=== PATIENT | female | born 1995 | race Caucasian/White ===

== ENCOUNTER 2017-04-28 13:37 | Emergency (ER) | payer MEDICAID ==
[2017-04-28 13:43] VITALS: BP 111/74
--- NOTE | 2017-04-28 14:00 | ED Physician Documentation ---
History of Present Illness - Stated complaint Stated Complaint: R SHOULDER PX - Chief complaint Chief Complaint: Ext Problem - History obtained from History obtained from: Patient - History of Present Illness Timing: How many days ago (2) Pain level max: 8 Pain level now: 8 Improved by: rest Worsened by: movement - Additonal information Additional information: Patient is a 21-year-old female who presents to the emergency department with a right shoulder injury. 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 Has not taken anything for the pain as she cannot swallow pills. Review of Systems Constitutional: denies: Fever, Chills Ears: denies: Ear pain Nose: denies: Rhinorrhea / runny nose, Congestion Cardiac: denies: Chest pain / pressure Respiratory: denies: Cough GI: denies: Nausea, Vomiting Skin: denies: Rash Musculoskeletal: denies: Neck pain, Back pain Neurologic: denies: Headache PD PAST MEDICAL HISTORY - Past Medical History Past Medical History: No - Past Surgical History Past Surgical History: No - Present Medications Home Medications: Ambulatory Orders Medication Instructions Recorded Confirmed Diclofenac Sodium 1 applic TP Q8H #1 gel..gram. 04/28/17 - Social History Does the pt smoke?: No Smoking Status: Never smoker PD ED PE NORMAL - Vitals Vital signs reviewed: Yes - General General: Alert and oriented X 3, No acute distress - HEENT HEENT: Moist mucous membranes - Neck Neck: Supple, no meningeal sign - Cardiac Cardiac: RRR, Strong equal pulses - Respiratory Respiratory: No respiratory distress, Clear bilaterally - Derm Derm: Warm and dry - Extremities Extremities: Other (R shoulder - TTP along the posterior glenohumeral joint. NVI including axillary nerve. pain with internal/external rotation. ) - Neuro Neuro: Alert and oriented X 3 - Psych Psych: Normal mood, Normal affect Results - Vitals Vitals: Vital Signs - 24 hr 04/28/17 04/28/17 13:40 13:42 Temperature 36.3 C L Heart Rate 80 Respiratory 16 Rate Blood Pressure 111/74 O2 Saturation 100 Oxygen O2 Source Room air PD MEDICAL DECISION MAKING - ED course Complexity details: considered differential, d/w patient ED course: Patient is a 21-year-old female who presents to the emergency department with what appears to be a right rotator cuff injury, likely a chronic tear that flares once in a while. She states she cannot swallow pills, therefore will trial on diclofenac gel. We will have her follow-up with orthopedics for further evaluation. Patient counseled regarding signs and symptoms for which I believe and urgent re-evaluation would be necessary. Patient with good understanding of and agreement to plan and is comfortable going home at this time This document was made in part using voice recognition software. While efforts are made to proofread this document, sound alike and grammatical errors may occur. Departure - Departure Disposition: 01 Home, Self Care Clinical Impression: Rotator cuff injury Qualifiers: Encounter type: initial encounter Laterality: right Qualified Code(s): S46.001A - Unspecified injury of muscle(s) and tendon(s) of the rotator cuff of right shoulder, initial encounter Condition: Good Instructions: ED Torn Rotator Cuff, ED Tendinitis Rotator Cuff Follow-Up: [facility] [Provider Group] - Within 1 week Prescriptions: Diclofenac Sodium 1 applic TP Q8H #1 gel..gram. Comments: Return if you worsen. This should improve with the diclofenac. Follow up with orthopedics for further care. Forms: Activity restrictions
== END 2017-04-28 14:14 | disposition home or self-care (01) ==
LOC: ED 13:37
DX: S46.001A Unspecified injury of muscle(s) and tendon(s) of the rotator cuff of right shoulder, initial encounter (principal); X58.XXXA Exposure to other specified factors, initial encounter
CPT/HCPCS: 99283

== ENCOUNTER 2018-03-04 08:00 | Outpatient (CLI) | payer MEDICAID | END 2018-03-04 08:01 | disposition home or self-care (01) | LOC: LAB.R 08:00 | PROVIDERS: ATTEND Registered Nurse | DX: Z11.3 Encounter for screening for infections with a predominantly sexual mode of transmission (principal) | CPT/HCPCS: 87491; 87591 ==

== ENCOUNTER 2018-03-18 04:57 | Emergency (ER) | payer MEDICAID ==
--- NOTE | 2018-03-18 05:06 | ED Physician Documentation ---
PD HPI HEENT - Stated complaint Stated Complaint: SOA - Chief complaint Chief Complaint: Resp - History obtained from History obtained from: Patient - History of Present Illness Timing - onset: How many days ago (3) Timing - duration: Days Timing - details: Gradual onset, Waxing and waning Pain level now: 2 Location: Sinuses, Throat Improves: Nothing Worsens: Swalllowing Associated symptoms: Congestion, Cough. 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 Review of Systems Constitutional: denies: Fever, Chills, Sweats Ears: denies: Ear pain Nose: reports: Congestion, Sinus pressure / pain Throat: reports: Sore throat Respiratory: reports: Dyspnea, Cough PD PAST MEDICAL HISTORY - Past Medical History Past Medical History: No - Past Surgical History Past Surgical History: No - Present Medications Home Medications: Ambulatory Orders Medication Instructions Recorded Confirmed Fluticasone [Flonase] 2 sprays JANICE DAILY #1 bottle 03/18/18 - Allergies Allergies/Adverse Reactions: Allergies Allergy/AdvReac Type Severity Reaction Status Date / Time No Known Drug Allergies Allergy Verified 03/18/18 05:03 - Social History Does the pt smoke?: No Smoking Status: Never smoker PD ED PE NORMAL - Vitals Vital signs reviewed: Yes - General General: Alert and oriented X 3, No acute distress, Well developed/nourished - HEENT HEENT: Moist mucous membranes, Pharynx benign - Neck Neck: Supple, no meningeal sign - Cardiac Cardiac: RRR, No murmur - Respiratory Respiratory: No respiratory distress, Other (right basilar course breath sounds. good air movement bilaterally without wheezing) Results - Vitals Vitals: Vital Signs - 24 hr 03/18/18 05:01 Temperature 36.8 C Heart Rate 104 H Respiratory 18 Rate Blood Pressure 127/74 O2 Saturation 97 Oxygen O2 Source Room air - Rads (name of study) chest xray Radiology: Prelim report reviewed, See rad report PD MEDICAL DECISION MAKING - ED course Complexity details: reviewed results, re-evaluated patient, considered differential, d/w patient - Sepsis Event Vital Signs: Vital Signs - 24 hr 03/18/18 05:01 Temperature 36.8 C Heart Rate 104 H Respiratory 18 Rate Blood Pressure 127/74 O2 Saturation 97 Oxygen O2 Source Room air Departure - Departure Disposition: 01 Home, Self Care Clinical Impression: Bronchitis Sinusitis Qualifiers: Sinusitis location: unspecified location Chronicity: acute Recurrence: non- recurrent Qualified Code(s): J01.90 - Acute sinusitis, unspecified Pharyngitis Qualifiers: Pharyngitis/tonsillitis etiology: unspecified etiology Qualified Code(s): J02.9 - Acute pharyngitis, unspecified Condition: Good Instructions: ED Upper Resp Infec No Abx Tx, ED Pharyngitis Viral Report Pending, ED Sinusitis No Abx Prescriptions: Fluticasone [Flonase] 2 sprays JANICE DAILY #1 bottle Comments: You can try the following for your symptoms: I strongly recommend ibuprofen 400mg by mouth every four hours as needed for symptoms. You can take 600mg every 6 hours if the 400mg dose does not provide any change in symptoms. guaifenesin for nasal or chest congestion. Mucinex is a brand name for this medication, but the generic will work the same. It is often a component of cough/cold products, so if you are already taking something for your symptoms, check the label. Nasal decongestant such as oxymetazoline, phelyleprhine, or pseudoephedrine. Some of these are in spray form, others are in pill form. Some cough/cold/sinus products have this as an ingredient, so if you are already taking something for your symptoms, check the label. Antihistamines, such as benadryl or claritin. Some people get relief with this medication, but I do not recommend them, as they dry secretions and make it more difficult for the sinuses to clear. Forms: Activity restrictions Discharge Date/Time: 03/18/18 06:27
--- NOTE | 2018-03-18 05:53 | XRAY Report ---
Reason: cough, dyspnea Procedure Date: 03/18/2018 Accession Number: [id number] / [id number] Procedure: XR - Chest 2 View X-Ray CPT Code: 38672 FULL RESULT: EXAM: CHEST RADIOGRAPHY EXAM DATE: 03/18/2018 05:38 AM. CLINICAL HISTORY: Cough, dyspnea. COMPARISON: SHOULDER 3 VIEW RT 05/01/2017 10:40 AM. TECHNIQUE: 2 views. FINDINGS: Lungs/Pleura: No focal opacities evident. No pleural effusion. No pneumothorax. Normal volumes. Mediastinum: Heart and mediastinal contours are unremarkable. Other: None. IMPRESSION: Normal 2-view chest radiography. RADIA
[2018-03-18 06:25] VITALS: BP 105/63
== END 2018-03-18 06:27 | disposition home or self-care (01) ==
LOC: ED 04:57
DX: J40 Bronchitis, not specified as acute or chronic (principal)
CPT/HCPCS: 71046; 87070; 87430; 99283

== ENCOUNTER 2019-01-29 10:18 | Outpatient (CLI) | payer MEDICAID ==
[2019-01-29 20:54] LABS: CANDIDA GROUP DNA POSITIVE (NEGATIVE); CANDIDA KRUSEI DNA NEGATIVE (NEGATIVE); TRICHOMONAS VAGINALIS DNA NEGATIVE (NEGATIVE)
== END 2019-01-29 23:59 | disposition home or self-care (01) ==
LOC: LAB.R 10:18
PROVIDERS: ATTEND Family Medicine
DX: N76.0 Acute vaginitis (principal)
CPT/HCPCS: 87661; 87801

== ENCOUNTER 2019-01-30 08:00 | Outpatient (CLI) | payer MEDICAID ==
[2019-01-31 19:39] LABS: H. PYLORIS ANTIGEN STL NEGATIVE (Negative)
== END 2019-01-30 23:59 | disposition home or self-care (01) ==
LOC: LAB.R 08:00
PROVIDERS: ATTEND Family Medicine
DX: R10.9 Unspecified abdominal pain (principal)
CPT/HCPCS: 87338

== ENCOUNTER 2019-01-30 12:01 | Outpatient (CLI) | payer MEDICAID ==
[2019-01-30 16:59] LABS: BASOPHILS % (AUTO) 0.6 %; EOSINOPHILS # (AUTO) 0.2 10^3/uL (0.0-0.7); EOSINOPHILS % (AUTO) 2.6 %; HGB - HEMOGLOBIN 14.8 g/dL (12.0-16.0); LYMPHOCYTES # (AUTO) 1.9 10^3/uL (1.5-3.5); LYMPHOCYTES % (AUTO) 30.2 %; MEAN CORPUSCULAR HEMOGLOBIN 30.8 pg (27.0-31.0); MEAN CORPUSCULAR HGB CONC 32.7 g/dL (32.0-36.0); MEAN CORPUSCULAR VOLUME 94.4 fL (81.0-99.0); MEAN PLATELET VOLUME 11.9 fL (7.9-10.8); MONOCYTES # (AUTO) 0.4 10^3/uL (0.0-1.0); MONOCYTES % (AUTO) 5.6 %; NEUTROPHILS # (AUTO) 3.8 10^3/uL (1.5-6.6); NEUTROPHILS % (AUTO) 60.8 %; PLT - PLATELET COUNT 180 10^3/uL (130-450); RED CELL DISTRIBUTION WIDTH 12.8 % (12.0-15.0); WHITE BLOOD COUNT 6.3 x10^3/uL (4.8-10.8)
[2019-01-30 17:13] LABS: ALBUMIN 4.2 g/dL (3.2-5.5); ALBUMIN/GLOBULIN RATIO 1.3 (1.0-2.2); CALCIUM 9.3 mg/dL (8.5-10.3); CREATININE 0.6 mg/dL (0.4-1.0); TOTAL PROTEIN 7.4 g/dL (6.7-8.2)
== END 2019-01-30 12:02 | disposition home or self-care (01) ==
LOC: LAB.S 12:01
PROVIDERS: ATTEND Family Medicine
DX: R53.83 Other fatigue (principal); R10.9 Unspecified abdominal pain
CPT/HCPCS: 36415; 80053; 84443; 85025; 87338

== ENCOUNTER 2019-04-29 07:00 | Outpatient (CLI) | payer MEDICAID | END 2019-04-29 23:59 | disposition home or self-care (01) | LOC: LAB.R 07:00 | PROVIDERS: ATTEND Registered Nurse | DX: J02.9 Acute pharyngitis, unspecified (principal) | CPT/HCPCS: 87070 ==

== ENCOUNTER 2020-03-23 12:03 | Emergency (ER) | payer OTHER, MEDICAID ==
--- NOTE | 2020-03-23 13:56 | ED Physician Documentation ---
History of Present Illness - Stated complaint Stated Complaint: LT SHOULDER PX - Chief complaint Chief Complaint: Ext Problem - Additonal information Additional information: 24-year-old female presents to the emergency department for evaluation of what she calls left shoulder pain. She reports that it started hurting anytime she moved her arm yesterday. She denies any falls or trauma. No fevers or swelling. Pain is in the anterior chest just below the clavicle. 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 No history of previous injury Patient denies chest pain or shortness of breath. No dyspnea on exertion. No unilateral leg swelling. No history of blood clots or cancer. Patient does get Depo-Provera every 3 months. She is a non-smoker. No cough congestion fevers or chills. Review of Systems Constitutional: reports: Reviewed and negative Eyes: reports: Reviewed and negative Nose: reports: Reviewed and negative Throat: reports: Reviewed and negative Cardiac: reports: Reviewed and negative Respiratory: reports: Reviewed and negative GI: reports: Reviewed and negative : reports: Reviewed and negative Skin: reports: Reviewed and negative Musculoskeletal: reports: Joint pain (left shoulder) Neurologic: reports: Reviewed and negative Psychiatric: reports: Reviewed and negative PD PAST MEDICAL HISTORY - Past Surgical History Past Surgical History: No - Present Medications Home Medications: Ambulatory Orders Medication Instructions Recorded Confirmed Fluticasone [Flonase] 2 sprays JANICE DAILY #1 bottle 03/18/18 Ibuprofen [Motrin] 600 mg PO Q6H PRN #30 tab 03/23/20 - Allergies Allergies/Adverse Reactions: Allergies Allergy/AdvReac Type Severity Reaction Status Date / Time No Known Drug Allergies Allergy Verified 03/23/20 12:07 - Social History Does the pt smoke?: No Smoking Status: Never smoker Does the pt drink ETOH?: No Does the pt have substance abuse?: No - Immunizations Immunizations are current?: Yes - POLST Patient has POLST: No PD ED PE NORMAL - General General: Alert and oriented X 3 - HEENT HEENT: PERRL - Neck Neck: Supple, no meningeal sign - Cardiac Cardiac: RRR, No murmur - Respiratory Respiratory: Clear bilaterally - Abdomen Abdomen: Normal bowel sounds, Soft, Non tender, Non distended - Back Back: No CVA TTP, No spinal TTP - Extremities Extremities: No deformity. No: No tenderness to palpate (Tenderness with deep palpation left superior anterior pectoralis muscle. No swelling or erythema. Full range of motion of shoulder in all planes against resistance. Negative impingement testing.) Results - Vitals Vitals: Vital Signs - 24 hr 03/23/20 12:07 Temperature 36.5 C Heart Rate 88 Respiratory 16 Rate Blood Pressure 130/90 H O2 Saturation 98 Oxygen O2 Source Room air - Rads (name of study) left shoulder Radiology: Final report received (No acute cardiopulmonary process) cxr Radiology: Final report received (no acute process) PD MEDICAL DECISION MAKING - ED course Complexity details: reviewed results, considered differential, d/w patient ED course: 24-year-old female presents the emergency department with acute left anterior shoulder pain. She denies falls or trauma. 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 Her exam is not consistent with rotator cuff pathology or internal derangement. She does have pain in the pectoralis muscle with deep palpation therefore I do suspect she had a pectoral strain. She is PERC criteria negative and Wells criteria negative therefore my suspicion for PE is exceedingly low. I will recommend she continue with ice and NSAID versus Tylenol use at home. Schedule close follow-up with primary care provider Departure - Departure Disposition: Home, Self Care Clinical Impression: Left shoulder pain Qualifiers: Chronicity: acute Qualified Code(s): M25.512 - Pain in left shoulder Strain of left pectoralis muscle Qualifiers: Encounter type: initial encounter Qualified Code(s): S29.011A - Strain of muscle and tendon of front wall of thorax, initial encounter Condition: Stable Record reviewed to determine appropriate education?: Yes Follow-Up: Bora Martin MD [Primary Care Provider] - Prescriptions: Ibuprofen [Motrin] 600 mg PO Q6H PRN #30 tab PRN Reason: Pain Comments: The x-rays of your chest and shoulder are normal. I suspect that you have strained your pectoralis muscle. I would like you to place ice over the muscle for 10 minutes 3 times a day and take the ibuprofen as prescribed. If your symptoms are not better in 7 to 10 days, you develop fevers or have difficulty breathing please return for a second look.
--- NOTE | 2020-03-23 14:39 | XRAY Report ---
PROCEDURE: Shoulder 3 View LT INDICATIONS: pain TECHNIQUE: 3 views of the shoulder were acquired. COMPARISON: None. FINDINGS: Bones: No fractures or dislocations. No suspicious bony lesions. Visualized ribs appear intact. Soft tissues: No suspicious soft tissue calcifications. IMPRESSION: Left shoulder without acute radiographic abnormalities or significant degenerative cui es. Reviewed by: Thomas Perez MD on 03/23/2020 2:38 PM PDT Approved by: Thomas Perez MD on 03/23/2020 2:38 PM PDT Station ID: [id number]
--- NOTE | 2020-03-23 14:40 | XRAY Report ---
PROCEDURE: Chest 1 View X-Ray INDICATIONS: chest pain TECHNIQUE: One view of the chest was acquired. COMPARISON: 03/18/2018. FINDINGS: Surgical changes and devices: None. Lungs and pleura: No pleural effusions or pneumothorax. Lungs are clear. Mediastinum: Mediastinal contours appear normal. Heart size is normal. Bones and chest wall: No suspicious bony lesions. Overlying soft tissues appear unremarkable. IMPRESSION: Chest without acute cardiopulmonary abnormalities. No focal airspace disease. Reviewed by: Thomas Perez MD on 03/23/2020 2:39 PM PDT Approved by: Thomas Perez MD on 03/23/2020 2:39 PM PDT Station ID: [id number]
[2020-03-23 14:56] VITALS: BP 100/59
== END 2020-03-23 15:01 | disposition home or self-care (01) ==
LOC: ED 12:03
DX: S29.011A Strain of muscle and tendon of front wall of thorax, initial encounter (principal); X58.XXXA Exposure to other specified factors, initial encounter
CPT/HCPCS: 71045; 99282; 99283

== ENCOUNTER 2020-06-30 18:17 | Emergency (ER) | payer OTHER, MEDICAID ==
[2020-06-30 18:54] LABS: BASOPHILS % (AUTO) 0.5 %; EOSINOPHILS # (AUTO) 0.2 10^3/uL (0.0-0.7); EOSINOPHILS % (AUTO) 2.8 %; HGB - HEMOGLOBIN 15.2 g/dL (12.0-16.0); LYMPHOCYTES # (AUTO) 2.4 10^3/uL (1.5-3.5); MEAN CORPUSCULAR HEMOGLOBIN 29.9 pg (27.0-31.0); MEAN CORPUSCULAR HGB CONC 32.8 g/dL (32.0-36.0); MEAN CORPUSCULAR VOLUME 91.1 fL (81.0-99.0); MEAN PLATELET VOLUME 10.9 fL (7.9-10.8); MONOCYTES # (AUTO) 0.5 10^3/uL (0.0-1.0); MONOCYTES % (AUTO) 6.1 %; NEUTROPHILS # (AUTO) 4.4 10^3/uL (1.5-6.6); NEUTROPHILS % (AUTO) 58.5 %; PLT - PLATELET COUNT 229 10^3/uL (130-450); RED BLOOD COUNT 5.08 10^6/uL (4.20-5.40); RED CELL DISTRIBUTION WIDTH 12.6 % (12.0-15.0); WHITE BLOOD COUNT 7.5 x10^3/uL (4.8-10.8)
[2020-06-30 19:08] LABS: ALBUMIN 4.3 g/dL (3.2-5.5); ALBUMIN/GLOBULIN RATIO 1.5 (1.0-2.2); BILIRUBIN,TOTAL 0.7 mg/dL (0.2-1.0); CALCIUM 9.4 mg/dL (8.5-10.3); CREATININE 0.8 mg/dL (0.4-1.0); TOTAL PROTEIN 7.2 g/dL (6.7-8.2)
--- NOTE | 2020-06-30 19:29 | XRAY Report ---
PROCEDURE: Chest 1 View X-Ray INDICATIONS: Chest Pain TECHNIQUE: One view of the chest was acquired. COMPARISON: 03/23/2020 FINDINGS: Surgical changes and devices: None. Lungs and pleura: No pleural effusions or pneumothorax. Lungs are clear. Mediastinum: Mediastinal contours appear normal. Heart size is normal. Bones and chest wall: No suspicious bony lesions. Overlying soft tissues appear unremarkable. IMPRESSION: Chest without acute cardiopulmonary abnormalities. No findings to explain patient's chest pain. Reviewed by: Thomas Perez MD on 06/30/2020 7:28 PM PST Approved by: Thomas Perez MD on 06/30/2020 7:28 PM PST Station ID: [id number]
[2020-06-30 23:27] VITALS: BP 103/65
--- NOTE | 2020-06-30 23:35 | ED Physician Documentation ---
PD HPI CHEST PAIN - Stated complaint Stated Complaint: CHEST PX/HEADACHE - Chief complaint Chief Complaint: Cardiac - History obtained from History obtained from: Patient - History of Present Illness Timing - onset: How many days ago (3) Timing - duration: Days Timing - details: Gradual onset, Waxing and waning Quality: Pain Location: Other (across anterior chest) Radiation: Other (no radiation) Improved by: Nothing Worsened by: Other (no exacerbating factors) Associated symptoms: No: Shortness of air, Diaphoresis, General Weakness, Palpitations, Cough Similar symptoms before: Has not had sx before Recently seen: Not recently seen - Additional information Additional information: c/o 3 days of aching chest pain across anterior chest and loss of taste. She denies fever, shortness of breath, loss of smell. 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 denies: Palpitations, Pedal edema Respiratory: reports: Reviewed and negative GI: reports: Reviewed and negative Musculoskeletal: denies: Extremity swelling PD PAST MEDICAL HISTORY - Past Medical History Past Medical History: No - Past Surgical History Past Surgical History: No - Present Medications Home Medications: Ambulatory Orders Medication Instructions Recorded Confirmed Ibuprofen [Motrin] 600 mg PO Q6H PRN #30 tab 03/23/20 06/30/20 - Allergies Allergies/Adverse Reactions: Allergies Allergy/AdvReac Type Severity Reaction Status Date / Time No Known Drug Allergies Allergy Verified 06/30/20 18:20 - Social History Does the pt smoke?: No Smoking Status: Never smoker Does the pt drink ETOH?: No Does the pt have substance abuse?: No - Immunizations Immunizations are current?: Yes - POLST Patient has POLST: No PD ED PE NORMAL - Vitals Vital signs reviewed: Yes - General General: Alert and oriented X 3, No acute distress, Well developed/nourished - Cardiac Cardiac: RRR, No murmur - Respiratory Respiratory: No respiratory distress, Clear bilaterally Results - Vitals Vitals: Oxygen O2 Source Room air - EKG (time done) No standard instances Rate: Rate (enter#) (83) Rhythm: NSR [place]: Normal Intervals: Normal AR QRS: Normal Ischemia: Normal ST segments - Labs Labs: Laboratory Tests 06/30/20 06/30/2006/30/21 18:49 18:49 18:49 WBC 7.5 RBC 5.08 Hgb 15.2 Hct 46.3 MCV 91.1 MCH 29.9 MCHC 32.8 RDW 12.6 Plt Count 229 MPV 10.9 H Neut # (Auto) 4.4 Lymph # (Auto) 2.4 Leake # (Auto) 0.5 Eos # (Auto) 0.2 Baso # (Auto) 0.0 Absolute Nucleated RBC 0.00 Nucleated RBC % 0.0 Sodium 143 Potassium 3.7 Chloride 108 Carbon Dioxide 24 Anion Gap 11.0 BUN 10 Creatinine 0.8 Estimated GFR (MDRD) 89 Glucose 114 H Calcium 9.4 Total Bilirubin 0.7 AST 19 ALT 16 Alkaline Phosphatase 61 Troponin I High Sens 5.3 Total Protein 7.2 Albumin 4.3 Globulin 2.9 Albumin/Globulin Ratio 1.5 Lipase 31 Nasal Adenovirus (PCR) Nasal B. parapertussis DNA (PCR) Nasal Coronavir 229E PCR Nasal Coronavir HKU1 PCR Nasal Coronavir NL63 PCR Nasal Coronavir OC43 PCR Nasal Enterovir/Rhinovir PCR Nasal Influenza B PCR Nasal Influenza A PCR Nasal Parainfluen 1 PCR Nasal Parainfluen 2 PCR Nasal Parainfluen 3 PCR Nasal Parainfluen 4 PCR Nasal RSV (PCR) Nasal B.pertussis DNA PCR Nasal C.pneumoniae (PCR) Ryan Human Metapneumo PCR Nasal M.pneumoniae (PCR) Nasal SARS-CoV-2 (PCR) 07/01/20 00:00 WBC RBC Hgb Hct MCV MCH MCHC RDW Plt Count MPV Neut # (Auto) Lymph # (Auto) Leake # (Auto) Eos # (Auto) Baso # (Auto) Absolute Nucleated RBC Nucleated RBC % Sodium Potassium Chloride Carbon Dioxide Anion Gap BUN Creatinine Estimated GFR (MDRD) Glucose Calcium Total Bilirubin AST ALT Alkaline Phosphatase Troponin I High Sens Total Protein Albumin Globulin Albumin/Globulin Ratio Lipase Nasal Adenovirus (PCR) NOT DETECTED Nasal B. parapertussis DNA (PCR) NOT DETECTED Nasal Coronavir 229E PCR NOT DETECTED Nasal Coronavir HKU1 PCR NOT DETECTED Nasal Coronavir NL63 PCR NOT DETECTED Nasal Coronavir OC43 PCR NOT DETECTED Nasal Enterovir/Rhinovir PCR NOT DETECTED Nasal Influenza B PCR NOT DETECTED Nasal Influenza A PCR NOT DETECTED Nasal Parainfluen 1 PCR NOT DETECTED Nasal Parainfluen 2 PCR NOT DETECTED Nasal Parainfluen 3 PCR NOT DETECTED Nasal Parainfluen 4 PCR NOT DETECTED Nasal RSV (PCR) NOT DETECTED Nasal B.pertussis DNA PCR NOT DETECTED Nasal C.pneumoniae (PCR) NOT DETECTED Ryan Human Metapneumo PCR NOT DETECTED Nasal M.pneumoniae (PCR) NOT DETECTED Nasal SARS-CoV-2 (PCR) NOT DETECTED - Rads (name of study) chest xray Radiology: Prelim report reviewed, See rad report PD MEDICAL DECISION MAKING - ED course Complexity details: reviewed results, re-evaluated patient, considered differential, d/w patient ED course: c/o chest pain and loss of taste. her w/u is unremarkable at this time, including EKG, CXR, blood tests (including troponin), respiratory panel including COVID. She is in NAD and her exam is also unremarkable. 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
[2020-07-01 01:07] LABS: C. PNEUMONIAE- RESP PCR PANEL NOT DETECTED
== END 2020-07-01 00:05 | disposition home or self-care (01) ==
LOC: ED 18:17
DX: R07.9 Chest pain, unspecified (principal); R43.9 Unspecified disturbances of smell and taste; Z20.822 Contact with and (suspected) exposure to COVID-19
CPT/HCPCS: 0202U; 36415; 71045; 80053; 83690; 84484; 85025; 93005; 99283; 99284

== ENCOUNTER 2020-07-02 14:55 | Emergency (ER) | payer OTHER, MEDICAID ==
[2020-07-02] MEDS ORDERED: MAG HYDROX/AL HYDROX/SIMETH 30 ML UDC PO STA (16:12)
[2020-07-02] MEDS ORDERED: KETOROLAC 15 MG/ML VIAL IVP STA (16:12)
[2020-07-02] MEDS ORDERED: MORPHINE 2 MG/ML CARPUJECT IVP STA (16:12)
[2020-07-02] MEDS ORDERED: LIDOCAINE VISCOUS 2% 15 ML UDC MM STA (16:12)
[2020-07-02] MEDS ORDERED: SODIUM CHLORIDE 0.9% 1,000 ML IV STA (16:12)
[2020-07-02] MEDS ORDERED: ONDANSETRON 4 MG/2 ML VIAL IVP STA (16:12)
--- NOTE | 2020-07-02 17:03 | Ultrasound Report ---
PROCEDURE: Abdomen Limited INDICATIONS: mid to right upper abd pain for days TECHNIQUE: Real-time scanning was performed of the abdominal and retroperitoneal organs, with image documentatio n. COMPARISON: None. FINDINGS: Liver: Liver is normal in size and homogeneous in echotexture. Gallbladder: The gallbladder appears normal without gallstones or gallbladder wall thickening. There is no pericholecystic fluid. Sonographic Hooks sign is negative. Biliary ducts: Intrahepatic bile ducts are non-dilated. Extrahepatic bile duct caliber measures 4 m m. Normal is 6-7 mm or less in diameter, or 10 mm or less post-cholecystectomy. Pancreas: Visualized portions of the pancreas are sonographically normal. Spleen: Spleen is normal in size and homogeneous in echotexture. Right kidney: Kidney is normal in size and echotexture. Right kidney measures 11.3 cm long. No hyd ronephrosis or nephrolithiasis. No solid masses. Aorta: Visualized aorta is normal in caliber at less than 3 cm. IVC: Intrahepatic inferior vena cava is patent. Miscellaneous: No free right upper quadrant fluid. IMPRESSION: No acute sonographic abnormality is identified in the right upper quadrant. Normal gallbladder. Reviewed by: Rich Zambrano MD on 07/02/2020 5:02 PM PST Approved by: Rich Zambrano MD on 07/02/2020 5:02 PM PST Station ID: [id number]
[2020-07-02 17:19] LABS: ALBUMIN 4.4 g/dL (3.2-5.5); ALBUMIN/GLOBULIN RATIO 1.4 (1.0-2.2); BILIRUBIN,TOTAL 0.9 mg/dL (0.2-1.0); CALCIUM 9.2 mg/dL (8.5-10.3); CREATININE 0.7 mg/dL (0.4-1.0); TOTAL PROTEIN 7.5 g/dL (6.7-8.2)
--- NOTE | 2020-07-02 17:35 | ED Physician Documentation ---
PD HPI ABD PAIN - Stated complaint Stated Complaint: CHEST PX,SOB, HEAD PX - Chief complaint Chief Complaint: Cardiac - History obtained from History obtained from: Patient - History of Present Illness Timing - onset: How many days ago (several) Timing - duration: Days Timing - details: Gradual onset, Still present, Waxing and waning Quality: Cramping, Aching, Pain Location: RUQ, Epigastric Radiation: Chest, Upper back. No: Left shoulder, Right shoulder Worsened by: Eating, Palpation. No: Breathing Associated symptoms: Nausea, Loss of appetite. No: Fever, Vomiting, Diarrhea, Melena, Near syncope / syncope Recently seen: Emergency Dept (2 days ago with emphasis on eval chest pain.) Review of Systems Constitutional: denies: Fever, Chills Nose: denies: Rhinorrhea / runny nose, Congestion Throat: denies: Sore throat Cardiac: reports: Chest pain / pressure Respiratory: denies: Cough GI: reports: Abdominal Pain, Nausea. denies: Vomiting, Diarrhea, Bloody / black stool Skin: denies: Rash, Lesions Neurologic: denies: Near syncope, Altered mental status PD PAST MEDICAL HISTORY - Past Medical History Cardiovascular: None Respiratory: None Neuro: None Endocrine/Autoimmune: None - Past Surgical History Past Surgical History: No - Present Medications Home Medications: Ambulatory Orders Medication Instructions Recorded Confirmed Famotidine 40 mg PO DAILY #100 oral.susp 07/02/20 Hydrocodone/Acetaminophen 5 ml PO Q6H PRN #100 ml 07/02/20 [Hydrocodone-Acetamn 7.5-325/15] Lidocaine Viscous 2% [Xylocaine 5 ml PO Q4H PRN #100 ml 07/02/20 Viscous 2%] - Allergies Allergies/Adverse Reactions: Allergies Allergy/AdvReac Type Severity Reaction Status Date / Time No Known Drug Allergies Allergy Verified 07/02/20 14:59 - Living Situation Living Arrangement: reports: At home - Social History Does the pt smoke?: No Smoking Status: Never smoker Does the pt drink ETOH?: No Does the pt have substance abuse?: No - Immunizations Immunizations are current?: Yes - POLST Patient has POLST: No PD ED PE NORMAL - Vitals Vital signs reviewed: Yes - General General: Alert and oriented X 3, Well developed/nourished, Other (seems in pain upper abd.) - Neck Neck: Supple, no meningeal sign, No adenopathy - Cardiac Cardiac: RRR, No murmur - Respiratory Respiratory: Clear bilaterally - Abdomen Abdomen: Normal bowel sounds, Soft, Non distended, No organomegaly, Other (tender epigastric area with guarding and also tender RUQ area. Neg Jefferson sign per se. ) - Back Back: No CVA TTP - Derm Derm: Normal color, Warm and dry - Extremities Extremities: No tenderness to palpate, Normal ROM s pain - Neuro Neuro: Alert and oriented X 3, No motor deficit, Normal speech Eye Opening: Spontaneous Motor: Obeys Commands Verbal: Oriented GCS Score: 15 Results - Vitals Vitals: Vital Signs - 24 hr 07/02/20 07/02/20 07/02/20 14:55 14:59 16:43 Temperature 36.7 C Heart Rate 75 110 H 79 Respiratory 21 19 18 Rate Blood Pressure 116/75 122/71 118/68 O2 Saturation 99 100 100 07/02/20 17:36 Temperature Heart Rate 71 Respiratory 16 Rate Blood Pressure 114/58 L O2 Saturation 99 Oxygen O2 Source Room air - Labs Labs: Laboratory Tests 07/02/20 16:58 Sodium 141 Potassium 3.5 Chloride 109 Carbon Dioxide 24 Anion Gap 8.0 BUN 12 Creatinine 0.7 Estimated GFR (MDRD) 104 Glucose 87 Calcium 9.2 Total Bilirubin 0.9 AST 19 ALT 15 Alkaline Phosphatase 57 Total Protein 7.5 Albumin 4.4 Globulin 3.1 Albumin/Globulin Ratio 1.4 Lipase 31 - Rads (name of study) abd U/S Radiology: Prelim report reviewed (normal gallbladder), See rad report PD MEDICAL DECISION MAKING - ED course Complexity details: reviewed results, re-evaluated patient (some improvement with GI cocktail, as well as pain meds generally. ), considered differential, d/w patient Departure - Departure Disposition: Home, Self Care Clinical Impression: Upper abdominal pain Gastritis Qualifiers: Gastritis type: unspecified gastritis Chronicity: acute Gastritis bleeding: without bleeding Qualified Code(s): K29.00 - Acute gastritis without bleeding Condition: Stable Record reviewed to determine appropriate education?: Yes Instructions: ED Gastritis, ED Epigastric Pain [facility] Prescriptions: Famotidine 40 mg PO DAILY #100 oral.susp Hydrocodone/Acetaminophen [Hydrocodone-Acetamn 7.5-325/15] 5 ml PO Q6H PRN #100 ml PRN Reason: Pain Lidocaine Viscous 2% [Xylocaine Viscous 2%] 5 ml PO Q4H PRN #100 ml PRN Reason: Pain Comments: Your gallbladder appears normal on ultrasound. Your lab tests are still normal today not showing any signs of inflammation of the pancreas or liver. Your symptoms sound likely to be irritation of the stomach. We will treat it with acid reducing medicines as well as numbing medicine to use with antacids as directed. Add Tylenol every 4-6 hours if needed for pains or pain medicine if needed for worse pain. Do not use any anti-inflammatories such as ibuprofen or naproxen as this could further irritate the stomach. Follow-up with your primary care if not improved well over the next several days and resolved by 5 to 7 days. Return if worsening. Discharge Date/Time: 07/02/20 18:02
[2020-07-02 17:37] VITALS: BP 114/58
== END 2020-07-02 18:02 | disposition home or self-care (01) ==
LOC: ED 14:55
DX: K29.00 Acute gastritis without bleeding (principal)
CPT/HCPCS: 36415; 76705; 80053; 83690; 93005; 96361; 96374; 96375; 99284; A9270

== ENCOUNTER 2020-07-05 16:06 | Emergency (ER) | payer OTHER, MEDICAID ==
--- NOTE | 2020-07-05 16:44 | ED Physician Documentation ---
History of Present Illness - Stated complaint Stated Complaint: CP,CERNA,NAUSEA,WEAK - Chief complaint Chief Complaint: General - History obtained from History obtained from: Patient - History of Present Illness Timing: How many weeks ago (1) Pain level max: 7 Pain level now: 5 - Additonal information Additional information: 24-year-old female presents to the emergency department for the third visit. She states that she has ongoing headaches intermittently. Gradual in onset. Come and go. She also states that she is not able to eat and drink very well. Eating causes her stomach to hurt. Most of the pain is in the epigastrium, but has also spread the lower abdomen as well. She has had a cardiac work-up here including chest x-ray and troponin which were negative. She has had a right upper quadrant ultrasound which was also negative. Normal blood work x2. No shortness of breath. No fevers. No cough. No chills. Denies any diarrhea or constipation. No urinary symptoms. Worse with eating. 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 : None HEENT: None Psych: None Musculoskeletal: None Derm: None - Past Surgical History Past Surgical History: No - Present Medications Home Medications: Ambulatory Orders Medication Instructions Recorded Confirmed Famotidine 40 mg PO DAILY #100 oral.susp 07/02/20 07/05/20 Hydrocodone/Acetaminophen 5 ml PO Q6H PRN #100 ml 07/02/20 07/05/20 [Hydrocodone-Acetamn 7.5-325/15] Lidocaine Viscous 2% [Xylocaine 5 ml PO Q4H PRN #100 ml 07/02/20 07/05/20 Viscous 2%] Butalb/Acetaminophen/Caffeine 1 cap PO Q6H PRN #10 capsule 07/05/20 [Fioricet 50-300-40 mg Capsule] Sucralfate [Carafate] 1 gm PO ACHS #120 ml 07/05/20 - Allergies Allergies/Adverse Reactions: Allergies Allergy/AdvReac Type Severity Reaction Status Date / Time No Known Drug Allergies Allergy Verified 07/05/20 16:14 - Social History Does the pt smoke?: No Smoking Status: Never smoker Does the pt drink ETOH?: Yes Does the pt have substance abuse?: No - Immunizations Immunizations are current?: Yes - POLST Patient has POLST: No PD ED PE NORMAL - Vitals Vital signs reviewed: Yes - General General: Alert and oriented X 3, No acute distress - HEENT HEENT: Moist mucous membranes - Neck Neck: Supple, no meningeal sign - Cardiac Cardiac: RRR, Strong equal pulses - Respiratory Respiratory: No respiratory distress, Clear bilaterally - Abdomen Abdomen: Soft, Non distended, Other (mild diffuse TTP without peritoneal signs.) - Back Back: No CVA TTP - Derm Derm: Warm and dry - Extremities Extremities: No edema - Neuro Neuro: Alert and oriented X 3 - Psych Psych: Normal mood, Normal affect Results - Vitals Vitals: Vital Signs - 24 hr 07/05/20 07/05/20 07/05/20 16:09 16:46 17:45 Temperature 36.7 C 37.4 C Heart Rate 114 H 104 H 79 Respiratory 16 22 16 Rate Blood Pressure 139/74 H 118/74 118/81 H O2 Saturation 100 99 99 07/05/20 07/05/20 18:42 19:28 Temperature 37.1 C Heart Rate 72 Respiratory 14 Rate Blood Pressure 101/67 O2 Saturation 99 Oxygen O2 Source Room air - Labs Labs: Laboratory Tests 07/05/20 07/05/20 07/05/20 16:45 16:45 16:45 WBC 7.7 RBC 5.10 Hgb 15.4 Hct 46.4 MCV 91.0 MCH 30.2 MCHC 33.2 RDW 12.5 Plt Count 217 MPV 11.0 H Neut # (Auto) 4.4 Lymph # (Auto) 2.5 [place] # (Auto) 0.5 Eos # (Auto) 0.2 Baso # (Auto) 0.1 Absolute Nucleated RBC 0.00 Nucleated RBC % 0.0 Sodium 144 Potassium 3.6 Chloride 108 Carbon Dioxide 24 Anion Gap 12.0 BUN 11 Creatinine 0.7 Estimated GFR (MDRD) 104 Glucose 94 Calcium 9.6 Total Bilirubin 0.5 AST 21 ALT 17 Alkaline Phosphatase 61 Total Protein 7.4 Albumin 4.5 Globulin 2.9 Albumin/Globulin Ratio 1.6 Lipase 31 Urine Color YELLOW Urine Clarity CLEAR Urine pH 6.5 Ur Specific [place] 1.025 Urine Protein NEGATIVE Urine Glucose (UA) NEGATIVE Urine Ketones NEGATIVE Urine Occult Blood NEGATIVE Urine Nitrite NEGATIVE Urine Bilirubin NEGATIVE Urine Urobilinogen 0.2 (NORMAL) Ur Leukocyte Esterase NEGATIVE Ur Microscopic Review NOT INDICATED Urine Culture Comments NOT INDICATED Urine HCG, Qual NEGATIVE Urine Opiates Screen POSITIVE H Ur Oxycodone Screen NEGATIVE Urine Methadone Screen NEGATIVE Ur Propoxyphene Screen NEGATIVE Ur Barbiturates Screen NEGATIVE Ur Tricyclics Screen NEGATIVE Ur Phencyclidine Scrn NEGATIVE Ur Amphetamine Screen NEGATIVE U Methamphetamines Scrn NEGATIVE U Benzodiazepines Scrn NEGATIVE Urine Cocaine Screen NEGATIVE U Cannabinoids Screen NEGATIVE - Rads (name of study) CT abdomen pelvis Radiology: Prelim report reviewed, EMP read contemporaneously, See rad report (No acute abnormality) PD MEDICAL DECISION MAKING - ED course Complexity details: reviewed results, re-evaluated patient, considered differential, d/w patient ED course: Patient feels better after Toradol. Patient is well-appearing, nontoxic. Afebrile. No pleuritic chest pain. No evidence of pulmonary embolus. Likely appears gastrointestinal. Likely GERD. Will place on Carafate. We will also prescribe Fioricet for her headaches. We will have her follow-up closely with her doctor for further care. No evidence of intracranial hemorrhage, subarachnoid hemorrhage, tumor. Patient counseled regarding signs and symptoms for which I believe and urgent re-evaluation would be necessary. Patient with good understanding of and agreement to plan and is comfortable going home at this time This document was made in part using voice recognition software. While efforts are made to proofread this document, sound alike and grammatical errors may occur. Departure - Departure Disposition: 01 Home, Self Care Clinical Impression: Abdominal pain Qualifiers: Abdominal location: unspecified location Qualified Code(s): R10.9 - Unspecified abdominal pain Headache Qualifiers: Headache type: unspecified Headache chronicity pattern: unspecified pattern Intractability: not intractable Qualified Code(s): R51.9 - Headache, unspecified Condition: Good Instructions: ED Abdominal Pain Unkn Cause, ED Cephalgia Unspecified Follow-Up: your,doctor in 1 week [Other] Prescriptions: Sucralfate [Carafate] 1 gm PO ACHS #120 ml Butalb/Acetaminophen/Caffeine [Fioricet 50-300-40 mg Capsule] 1 cap PO Q6H PRN #10 capsule PRN Reason: headache Comments: The cause of your symptoms is unclear today. Please follow-up with your doctor for further care. Return if you worsen. Avoid fried foods, spicy foods, caf feine, alcohol as these may worsen your symptoms. Discharge Date/Time: 07/05/20 19:37
[2020-07-05] MEDS ORDERED: IOVERSOL 320 100 ML VIAL IVP ONE ×2 (16:47→17:59)
[2020-07-05 16:52] LABS: MUDS CUTOFF CONCENTRATIONS CUTOFF CONC BELOW:
[2020-07-05 16:57] LABS: BASOPHILS # (AUTO) 0.1 10^3/uL (0.0-0.1); EOSINOPHILS # (AUTO) 0.2 10^3/uL (0.0-0.7); EOSINOPHILS % (AUTO) 2.2 %; HGB - HEMOGLOBIN 15.4 g/dL (12.0-16.0); LYMPHOCYTES # (AUTO) 2.5 10^3/uL (1.5-3.5); LYMPHOCYTES % (AUTO) 32.9 %; MEAN CORPUSCULAR HEMOGLOBIN 30.2 pg (27.0-31.0); MEAN CORPUSCULAR HGB CONC 33.2 g/dL (32.0-36.0); MONOCYTES # (AUTO) 0.5 10^3/uL (0.0-1.0); MONOCYTES % (AUTO) 6.9 %; NEUTROPHILS # (AUTO) 4.4 10^3/uL (1.5-6.6); NEUTROPHILS % (AUTO) 56.9 %; PLT - PLATELET COUNT 217 10^3/uL (130-450); RED CELL DISTRIBUTION WIDTH 12.5 % (12.0-15.0); WHITE BLOOD COUNT 7.7 x10^3/uL (4.8-10.8)
[2020-07-05 16:58] LABS: BILIRUBIN,URINE NEGATIVE (NEGATIVE); GLUCOSE, URINE (UA) NEGATIVE (NEGATIVE); KETONES,URINE (UA) NEGATIVE (NEGATIVE); LEUKOCYTE ESTERASE, URINE NEGATIVE (NEGATIVE); NITRITE,URINE NEGATIVE (NEGATIVE); OCCULT BLOOD,URINE NEGATIVE (NEGATIVE); PH,URINE 6.5 PH (5.0-7.5); PROTEIN,URINE NEGATIVE (NEGATIVE); UROBILINOGEN,URINE 0.2 (NORMAL) E.U./dL (NORMAL)
[2020-07-05 17:01] LABS: CLARITY,URINE CLEAR (CLEAR); HCG UR QUAL NEGATIVE
[2020-07-05 17:12] LABS: ALBUMIN 4.5 g/dL (3.2-5.5); ALBUMIN/GLOBULIN RATIO 1.6 (1.0-2.2); BILIRUBIN,TOTAL 0.5 mg/dL (0.2-1.0); CALCIUM 9.6 mg/dL (8.5-10.3); CREATININE 0.7 mg/dL (0.4-1.0); TOTAL PROTEIN 7.4 g/dL (6.7-8.2)
[2020-07-05 17:27] LABS: AMPHETAMINE SCREEN,URINE NEGATIVE (NEGATIVE); BENZODIAZEPINES SCREEN, URINE NEGATIVE (NEGATIVE); COCAINE SCREEN URINE NEGATIVE (NEGATIVE); METHADONE SCREEN, URINE NEGATIVE (NEGATIVE); METHAMPHETAMINES SCREEN, URINE NEGATIVE (NEGATIVE); OPIATE SCREEN, URINE POSITIVE (NEGATIVE); OXYCODONE SCREEN, URINE NEGATIVE (NEGATIVE); PROPOXYPHENE SCREEN, URINE NEGATIVE (NEGATIVE); TRICYCLIC ANTIDEPRESSANT,URINE NEGATIVE (NEGATIVE)
[2020-07-05] MEDS ORDERED: KETOROLAC 30 MG/ML VIAL IVP STA (17:31)
--- NOTE | 2020-07-05 18:17 | CT Report ---
PROCEDURE: Abdomen/Pelvis W INDICATIONS: diffuse lower abdominal pain CONTRAST: IV CONTRAST: Optiray 320 ml: 100 PO CONTRAST: *NO PO CONTRAST TECHNIQUE: After the administration of intravenous contrast, 5 mm thick sections acquired from the diaphragms to the symphysis. 5 mm thick coronal and sagittal reformats were acquired. For radiation dose reducti on, the following was used: automated exposure control, adjustment of mA and/or kV according to eduarda ent size. COMPARISON: None. FINDINGS: Image quality: Excellent. ABDOMEN: Lung bases: Lung bases are clear. Heart size is normal. Solid organs: Liver and spleen are normal in size and enhancement. Focal fatty infiltration of the l iver adjacent to the falciform ligament. Gallbladder is normal. Biliary system is non dilated. Panc reas enhances normally. No adrenal nodules. Kidneys demonstrate normal size and enhancement, withou t hydronephrosis. 8 mm left renal cyst. Peritoneum and bowel: Bowel loops demonstrate normal wall thickness and caliber. No free fluid or a ir. Visualized appendix is normal. No free fluid or inflammatory changes noted adjacent to the cecum. Nodes and vessels: No retroperitoneal or mesenteric adenopathy by size criteria. Aorta and inferior vena cava are normal in size. Miscellaneous: No ventral hernias. PELVIS: Genitourinary: Bladder wall thickness is normal. Miscellaneous: No inguinal hernias or adenopathy. Bones: No suspicious bony lesions. No vertebral body compression fractures. IMPRESSION: 1. No acute disease process. 2. No free fluid or free air. 3. No dilated loops of bowel. 4. Visualized appendix is normal. Reviewed by: Shwetha Crespo MD, PhD on 07/05/2020 5:15 PM [place] Approved by: Shwetha Crespo MD, PhD on 07/05/2020 5:15 PM [facility] Station ID: [id number]
[2020-07-05 18:44] VITALS: BP 101/67
[2020-07-05] MEDS ORDERED: BUTALB/ACETAM/CAFF 50/325/40MG TABLET PO STA (19:13)
== END 2020-07-05 19:37 | disposition home or self-care (01) ==
LOC: ED 16:06
DX: R10.84 Generalized abdominal pain (principal); R51.9 Headache, unspecified
CPT/HCPCS: 36415; 74177; 80053; 80306; 81003; 81025; 83690; 85025; 96374; 99284; A9270; Q9967; 81001; 87086

== ENCOUNTER 2020-07-07 15:40 | Emergency (ER) | payer OTHER, MEDICAID ==
[2020-07-07 15:50] VITALS: BP 132/70
--- NOTE | 2020-07-07 16:04 | ED Physician Documentation ---
History of Present Illness - Stated complaint Stated Complaint: CP - Chief complaint Chief Complaint: General - History obtained from History obtained from: Patient - Additonal information Additional information: 24-year-old woman with no history of health problems. She has been having issues over the last 8 days. It started last Sunday, 8 days ago with chest pain and headache. Chest pain is anterior radiating to the back and is associated with shortness of breath. Moderate frontal headache, nothing makes it better or worse. She has been getting relief with hydrocodone. This is her fourth visit this week for similar symptoms. The change today is that she developed more nausea and some diarrhea. In the interim she has had extensive testing including EKGs, chest x-ray, abdominal ultrasound, abdominal CT, and serial labs including Covid testing that were all negative. She is frustrated by the lack of diagnosis. 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 : None HEENT: None Psych: None Musculoskeletal: None Derm: None - Past Surgical History Past Surgical History: No - Present Medications Home Medications: Ambulatory Orders Medication Instructions Recorded Confirmed Famotidine 40 mg PO DAILY #100 oral.susp 07/02/20 07/05/20 Hydrocodone/Acetaminophen 5 ml PO Q6H PRN #100 ml 07/02/20 07/05/20 [Hydrocodone-Acetamn 7.5-325/15] Lidocaine Viscous 2% [Xylocaine 5 ml PO Q4H PRN #100 ml 07/02/20 07/05/20 Viscous 2%] Butalb/Acetaminophen/Caffeine 1 cap PO Q6H PRN #10 capsule 07/05/20 [Fioricet 50-300-40 mg Capsule] Sucralfate [Carafate] 1 gm PO ACHS #120 ml 07/05/20 - Allergies Allergies/Adverse Reactions: Allergies Allergy/AdvReac Type Severity Reaction Status Date / Time No Known Drug Allergies Allergy Verified 07/07/20 15:46 - Social History Does the pt smoke?: No Smoking Status: Never smoker Does the pt drink ETOH?: Yes Does the pt have substance abuse?: No - Immunizations Immunizations are current?: Yes - POLST Patient has POLST: No PD ED PE NORMAL - Vitals Vital signs reviewed: Yes - General General: Alert and oriented X 3, Other (She is thin with slightly hypermobile joints and lanky,) - HEENT HEENT: PERRL, EOMI - Neck Neck: Supple, no meningeal sign, No bony TTP - Cardiac Cardiac: RRR, No murmur - Respiratory Respiratory: No respiratory distress, Clear bilaterally - Abdomen Abdomen: Non tender - Back Back: No CVA TTP, No spinal TTP - Derm Derm: Normal color, Warm and dry - Extremities Extremities: No edema, No calf tenderness / cord - Neuro Neuro: Alert and oriented X 3, Normal speech Results - Vitals Vitals: Vital Signs - 24 hr 07/07/20 15:46 Temperature 36.8 C Heart Rate 89 Respiratory 18 Rate Blood Pressure 132/70 H O2 Saturation 99 Oxygen O2 Source Room air - EKG (time done) 1544 Rate: Rate (enter#) (85) Rhythm: NSR [place]: Normal Intervals: Normal TN QRS: Normal Ischemia: Normal ST segments Compare to prior EKG: Unchanged from prior EKG Computer interpretation: Agree with computer - Labs Labs: Laboratory Tests 07/07/20 07/07/20 07/07/20 16:17 16:26 16:26 WBC 5.5 RBC 5.18 Hgb 15.4 Hct 47.3 H MCV 91.3 MCH 29.7 MCHC 32.6 RDW 12.5 Plt Count 205 MPV 10.9 H Neut # (Auto) 2.7 Lymph # (Auto) 2.2 [place] # (Auto) 0.3 Eos # (Auto) 0.2 Baso # (Auto) 0.1 Absolute Nucleated RBC 0.00 Nucleated RBC % 0.0 Sodium 143 Potassium 3.6 Chloride 106 Carbon Dioxide 25 Anion Gap 12.0 BUN 14 Creatinine 0.6 Estimated GFR (MDRD) 124 Glucose 96 Calcium 9.7 Total Bilirubin 0.4 AST 21 ALT 16 Alkaline Phosphatase 60 Total Protein 7.5 Albumin 4.6 Globulin 2.9 Albumin/Globulin Ratio 1.6 Urine Opiates Screen NEGATIVE Ur Oxycodone Screen NEGATIVE Urine Methadone Screen NEGATIVE Ur Propoxyphene Screen NEGATIVE Ur Barbiturates Screen POSITIVE H Ur Tricyclics Screen NEGATIVE Ur Phencyclidine Scrn NEGATIVE Ur Amphetamine Screen NEGATIVE U Methamphetamines Scrn NEGATIVE U Benzodiazepines Scrn NEGATIVE Urine Cocaine Screen NEGATIVE U Cannabinoids Screen NEGATIVE - Rads (name of study) Ct Head Radiology: EMP read contemporaneously (normal) CTA Chest Radiology: EMP read contemporaneously (no PE or urgent finding) PD MEDICAL DECISION MAKING - ED course ED course: 24-year-old woman with multiple complaints, previously negative and thorough work-ups. Differential diagnosis also includes PE, dissection, subarachnoid hemorrhage although that is much less likely given the time course of the symptoms. Continued work-up was negative for acute findings and she was reassured. Departure - Departure Disposition: 01 Home, Self Care Clinical Impression: Chest pain Qualifiers: Chest pain type: unspecified Qualified Code(s): R07.9 - Chest pain, unspecified Headache Qualifiers: Headache type: tension-type Headache chronicity pattern: acute headache Intractability: not intractable Qualified Code(s): G44.209 - Tension-type headache, unspecified, not intractable Condition: Good Record reviewed to determine appropriate education?: Yes Instructions: ED Cephalgia Unspecified, ED Viral Syndrome Comments: Lab work and continued advanced imaging today continue to show no urgent findings. The combination of headache, diarrhea, nausea is consistent with a viral syndrome. Previously tested negative for coronavirus. I would continue the hydrocodone and the Zofran as needed and expect resolution of your symptoms within days. Return if worse or if new symptoms develop. Otherwise please follow-up with your primary care physician. Discharge Date/Time: 07/07/20 17:33
[2020-07-07 16:19] LABS: MUDS CUTOFF CONCENTRATIONS CUTOFF CONC BELOW:
[2020-07-07] MEDS ORDERED: IOVERSOL 320 100 ML VIAL IVP ONE ×2 (16:26→16:50)
[2020-07-07 16:32] LABS: BASOPHILS # (AUTO) 0.1 10^3/uL (0.0-0.1); BASOPHILS % (AUTO) 0.9 %; EOSINOPHILS # (AUTO) 0.2 10^3/uL (0.0-0.7); EOSINOPHILS % (AUTO) 2.8 %; HGB - HEMOGLOBIN 15.4 g/dL (12.0-16.0); LYMPHOCYTES # (AUTO) 2.2 10^3/uL (1.5-3.5); MEAN CORPUSCULAR HEMOGLOBIN 29.7 pg (27.0-31.0); MEAN CORPUSCULAR HGB CONC 32.6 g/dL (32.0-36.0); MEAN CORPUSCULAR VOLUME 91.3 fL (81.0-99.0); MEAN PLATELET VOLUME 10.9 fL (7.9-10.8); MONOCYTES # (AUTO) 0.3 10^3/uL (0.0-1.0); MONOCYTES % (AUTO) 6.1 %; NEUTROPHILS # (AUTO) 2.7 10^3/uL (1.5-6.6); PLT - PLATELET COUNT 205 10^3/uL (130-450); RED BLOOD COUNT 5.18 10^6/uL (4.20-5.40); RED CELL DISTRIBUTION WIDTH 12.5 % (12.0-15.0); WHITE BLOOD COUNT 5.5 x10^3/uL (4.8-10.8)
[2020-07-07 16:36] LABS: AMPHETAMINE SCREEN,URINE NEGATIVE (NEGATIVE); BENZODIAZEPINES SCREEN, URINE NEGATIVE (NEGATIVE); COCAINE SCREEN URINE NEGATIVE (NEGATIVE); METHADONE SCREEN, URINE NEGATIVE (NEGATIVE); METHAMPHETAMINES SCREEN, URINE NEGATIVE (NEGATIVE); OPIATE SCREEN, URINE NEGATIVE (NEGATIVE); OXYCODONE SCREEN, URINE NEGATIVE (NEGATIVE); PROPOXYPHENE SCREEN, URINE NEGATIVE (NEGATIVE); TRICYCLIC ANTIDEPRESSANT,URINE NEGATIVE (NEGATIVE)
[2020-07-07 16:47] LABS: ALBUMIN 4.6 g/dL (3.2-5.5); ALBUMIN/GLOBULIN RATIO 1.6 (1.0-2.2); BILIRUBIN,TOTAL 0.4 mg/dL (0.2-1.0); CALCIUM 9.7 mg/dL (8.5-10.3); CREATININE 0.6 mg/dL (0.4-1.0); TOTAL PROTEIN 7.5 g/dL (6.7-8.2)
--- NOTE | 2020-07-07 17:01 | CT Report ---
PROCEDURE: HEAD WO INDICATIONS: headache TECHNIQUE: Noncontrast 4.5 mm thick angled axial sections acquired from the foramen magnum to the vertex. For r adiation dose reduction, the following was used: automated exposure control, adjustment of mA and/or kV according to patient size. COMPARISON: None. FINDINGS: Image quality: Excellent. CSF spaces: Basal cisterns are patent. No extra-axial fluid collections. Ventricles are normal in size and shape. Brain: No midline shift. No intracranial masses or hemorrhage. [place]-white matter interface is norm al. Skull and face: Calvarium and visualized facial bones are intact, without suspicious lesions. Sinuses: Visualized sinuses and mastoids are clear. IMPRESSION: A cause of headache cannot be seen on these images. No intracranial hemorrhage is seen. No masses or mass effect can be seen. No hydrocephalus. Reviewed by: Franco Mccarthy MD on 07/07/2020 4:00 PM [facility] Approved by: Franco Mccarthy MD on 07/07/2020 4:00 PM [facility] Station ID: [id number]
--- NOTE | 2020-07-07 17:04 | CT Report ---
PROCEDURE: ANGIO CHEST W/WO INDICATIONS: CP/dyspnea, pe protocol CONTRAST: IV CONTRAST: Optiray 320 ml: 80 PO CONTRAST: *NO PO CONTRAST TECHNIQUE: After the administration of intravenous contrast, 2 mm thick sections acquired from the pulmonary api simon to the posterior costophrenic angles. 3-dimensional maximum intensity projection (MIP) coronal a nd sagittal reformats were then acquired through the thorax. For radiation dose reduction, the follow ing was used: automated exposure control, adjustment of mA and/or kV according to patient size. COMPARISON: Correlation is made with the overlapping portions of the abdomen and pelvis CT 07/05/2020 FINDINGS: Image quality: Excellent. Pulmonary arteries: Pulmonary arteries are normal in size, and demonstrate no intraluminal filling d efects to suggest central pulmonary embolism. Lungs and pleura: Lungs are clear. No pleural effusions or pneumothorax. Central and peripheral ai rways are patent. Mediastinum: Heart size is normal, without pericardial effusion. No mediastinal or hilar adenopathy . A small amount of residual thymus tissue can be seen within the anterior mediastinum, which is con sidered to be within normal limits for a patient of this age. Thoracic aorta is normal in caliber an d enhancement. Esophagus is normal in caliber, without hiatal hernia. Bones and chest wall: No suspicious bony lesions. Ribs and thoracic spine appear intact throughout. Mild dextroconvex scoliotic curvature is seen. The thyroid is normal. No axillary or supraclavicu lar adenopathy. Abdomen: Visualized upper abdominal solid organs appear normal in the early arterial phase of enhanc ement. IMPRESSION: Negative for pulmonary embolism. Incidental note is made of: Residual thymus tissue. Mild dextroconvex scoliotic curvature Reviewed by: Franco Mccarthy MD on 07/07/2020 4:02 PM [place] Approved by: Franco Mccarthy MD on 07/07/2020 4:02 PM [facility] Station ID: [id number]
== END 2020-07-07 17:33 | disposition home or self-care (01) ==
LOC: ED 15:40
DX: R07.9 Chest pain, unspecified (principal); G44.209 Tension-type headache, unspecified, not intractable
CPT/HCPCS: 36415; 70450; 71275; 80053; 80306; 85025; 93005; 99284; Q9967

== ENCOUNTER 2020-10-05 11:18 | Emergency (ER) | payer MEDICAID, OTHER ==
--- OUTSIDE RECORDS SUMMARY | 2020-10-05 11:22 | EXTERNAL MEDICAL SUMMARY RPT | Continuity of Care Document ---
:1995 Demographics Phone Unavailable Preferred Language Unknown Marital Status Unknown Lutheran Affiliation Unknown Race Unknown Ethnic Group Unknown Author Organization [place] Address [address] [phone] Phone Social History date description facility [phone]
--- OUTSIDE RECORDS SUMMARY | 2020-10-05 12:03 | EXTERNAL MEDICAL SUMMARY RPT | Continuity of Care Document ---
:1995 Demographics Phone Unavailable Preferred Language Unknown Marital Status Unknown Holiness Affiliation Unknown Race Unknown Ethnic Group Unknown Author Organization [facility] [place] Address [address] [phone] Phone Social History date description facility [phone]
--- NOTE | 2020-10-05 12:15 | ED Physician Documentation ---
PD HPI NECK PAIN - Stated complaint Stated Complaint: NUMBNESS IN LT ARM - Chief complaint Chief Complaint: Ext Problem - History obtained from History obtained from: Patient - History of Present Illness Timing - onset: Yesterday Timing - details: Abrupt onset (awoke with pain left side neck to left shoulder and numbness in left arm. No weakness.), Still present Location: Left Quality: Pain, Spasm, Aching Associated symptoms: Numbness (feeling tingling in left arm diffusely, not dermatomal per se.). No: Fever, Weakness Worsened by: Movement (of neck and shoulder) Contributing factors: No: Lifting, Twisting, Trauma Similar symptoms before: Has not had sx before Recently seen: Not recently seen Review of Systems Constitutional: denies: Fever, Chills Nose: denies: Rhinorrhea / runny nose, Congestion Throat: denies: Sore throat Respiratory: denies: Cough Skin: denies: Rash, Lesions Musculoskeletal: reports: Neck pain (just left lateral). denies: Back pain Neurologic: reports: Numbness. 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 : None HEENT: None Psych: None Musculoskeletal: None Derm: None - Past Surgical History Past Surgical History: No - Present Medications Home Medications: Ambulatory Orders Medication Instructions Recorded Confirmed Famotidine 40 mg PO DAILY #100 oral.susp 07/02/20 07/05/20 Hydrocodone/Acetaminophen 5 ml PO Q6H PRN #100 ml 07/02/20 07/05/20 [Hydrocodone-Acetamn 7.5-325/15] Lidocaine Viscous 2% [Xylocaine 5 ml PO Q4H PRN #100 ml 07/02/20 07/05/20 Viscous 2%] Butalb/Acetaminophen/Caffeine 1 cap PO Q6H PRN #10 capsule 07/05/20 [Fioricet 50-300-40 mg Capsule] Sucralfate [Carafate] 1 gm PO ACHS #120 ml 07/05/20 Hydrocodone/Acetaminophen 10 ml PO Q6H PRN #120 ml 10/05/20 [Hydrocodone-Acetamn 7.5-325/15] tiZANidine [Zanaflex] 4 mg PO Q8H PRN #20 tablet 10/05/20 - Allergies Allergies/Adverse Reactions: Allergies Allergy/AdvReac Type Severity Reaction Status Date / Time No Known Drug Allergies Allergy Verified 10/05/20 11:48 - Social History Does the pt smoke?: No Smoking Status: Never smoker Does the pt drink ETOH?: Yes Does the pt have substance abuse?: No - Immunizations Immunizations are current?: Yes - POLST Patient has POLST: No PD ED PE NORMAL - Vitals Vital signs reviewed: Yes - General General: Alert and oriented X 3, Well developed/nourished, Other (guarding ROM of the neck and left shoulder. ) - HEENT HEENT: Ears normal, Pharynx benign - Neck Neck: Supple, no meningeal sign, No bony TTP, No adenopathy, Other (tender left side neck along SCM muscle area. ) - Cardiac Cardiac: RRR, No murmur - Respiratory Respiratory: Clear bilaterally - Derm Derm: Normal color, Warm and dry, No rash - Neuro Neuro: Alert and oriented X 3, No motor deficit, No sensory deficit (she is able to feel touch and sharp in arm/hand. 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 Normal colors and cap refills, fpulses. ), Normal speech Results - Vitals Vitals: Vital Signs - 24 hr 10/05/20 10/05/20 11:45 14:01 Temperature 36.3 C L 37.0 C Heart Rate 92 77 Respiratory 15 18 Rate Blood Pressure 119/68 106/71 O2 Saturation 99 98 Oxygen O2 Source Room air PD MEDICAL DECISION MAKING - ED course Complexity details: considered differential (pain more to lateral neck and arm numbness, with good color/pulses/hospital coder and sensation to touch/sharp. Seems like brachial plexus or such impingement and not single nerve root. ), d/w patient Departure - Departure Disposition: 01 Home, Self Care Clinical Impression: Neck pain, Arm numbness Condition: Stable Record reviewed to determine appropriate education?: Yes Instructions: ED Neck Pain No Trauma Follow-Up: JOSHUA GONZÁLES PA-C [Primary Care Provider] - Prescriptions: Hydrocodone/Acetaminophen [Hydrocodone-Acetamn 7.5-325/15] 10 ml PO Q6H PRN #120 ml PRN Reason: Pain tiZANidine [Zanaflex] 4 mg PO Q8H PRN #20 tablet PRN Reason: Spasms Comments: Use the sling for the arm for the next several days and progress use and activity as able. Tylenol every 4 hours if needed for pain or hydrocodone if needed for worse pain. Follow-up with your primary if not improved over the next several days to week. Off work for couple days. Forms: Activity restrictions Discharge Date/Time: 10/05/20 14:25
[2020-10-05] MEDS ORDERED: DEXAMETHASONE 10 MG/ML VIAL PO STA (13:11)
[2020-10-05] MEDS ORDERED: CHERRY SYRUP 10 ML UDC PO ONE (13:11)
[2020-10-05 14:01] VITALS: BP 106/71
== END 2020-10-05 14:25 | disposition home or self-care (01) ==
LOC: ED 11:18
DX: M54.2 Cervicalgia (principal); R20.0 Anesthesia of skin
CPT/HCPCS: 99282; 99284; A9270

== ENCOUNTER 2020-11-08 11:46 | Emergency (ER) | payer MEDICAID ==
--- OUTSIDE RECORDS SUMMARY | 2020-11-08 11:50 | EXTERNAL MEDICAL SUMMARY RPT | Continuity of Care Document ---
:1995 Demographics Phone Unavailable Preferred Language Unknown Marital Status Unknown Evangelical Affiliation Unknown Race Unknown Ethnic Group Unknown Author Organization [facility] Address [address] [place] [address] Phone Allergies Encounters Medications Problems Results
[2020-11-08 12:20] LABS: BASOPHILS % (AUTO) 0.6 %; EOSINOPHILS # (AUTO) 0.1 10^3/uL (0.0-0.7); EOSINOPHILS % (AUTO) 1.8 %; HCT - HEMATOCRIT 45.3 % (37.0-47.0); HGB - HEMOGLOBIN 14.9 g/dL (12.0-16.0); LYMPHOCYTES # (AUTO) 2.2 10^3/uL (1.5-3.5); LYMPHOCYTES % (AUTO) 36.4 %; MEAN CORPUSCULAR HEMOGLOBIN 30.5 pg (27.0-31.0); MEAN CORPUSCULAR HGB CONC 32.9 g/dL (32.0-36.0); MEAN CORPUSCULAR VOLUME 92.6 fL (81.0-99.0); MEAN PLATELET VOLUME 11.2 fL (7.9-10.8); MONOCYTES # (AUTO) 0.3 10^3/uL (0.0-1.0); MONOCYTES % (AUTO) 5.4 %; NEUTROPHILS # (AUTO) 3.4 10^3/uL (1.5-6.6); NEUTROPHILS % (AUTO) 55.6 %; PLT - PLATELET COUNT 195 10^3/uL (130-450); RED BLOOD COUNT 4.89 10^6/uL (4.20-5.40); RED CELL DISTRIBUTION WIDTH 12.6 % (12.0-15.0); WHITE BLOOD COUNT 6.2 x10^3/uL (4.8-10.8)
[2020-11-08 12:24] LABS: BILIRUBIN,URINE NEGATIVE (NEGATIVE); GLUCOSE, URINE (UA) NEGATIVE (NEGATIVE); KETONES,URINE (UA) NEGATIVE (NEGATIVE); LEUKOCYTE ESTERASE, URINE NEGATIVE (NEGATIVE); NITRITE,URINE NEGATIVE (NEGATIVE); OCCULT BLOOD,URINE NEGATIVE (NEGATIVE); PH,URINE 5.5 PH (5.0-7.5); PROTEIN,URINE NEGATIVE (NEGATIVE); UROBILINOGEN,URINE 0.2 (NORMAL) E.U./dL (NORMAL)
--- OUTSIDE RECORDS SUMMARY | 2020-11-08 12:25 | EXTERNAL MEDICAL SUMMARY RPT | Continuity of Care Document ---
:1995 Demographics Phone Unavailable Preferred Language Unknown Marital Status Unknown Oriental Orthodox Affiliation Unknown Race Unknown Ethnic Group Unknown Author Organization [facility] Address [address] [phone] Phone Allergies Encounters Medications Problems Results
[2020-11-08 12:26] LABS: CLARITY,URINE CLEAR (CLEAR); HCG UR QUAL NEGATIVE
[2020-11-08 12:32] LABS: ALBUMIN 4.9 g/dL (3.2-5.5); ALBUMIN/GLOBULIN RATIO 1.8 (1.0-2.2); BILIRUBIN,TOTAL 0.7 mg/dL (0.2-1.0); CALCIUM 9.9 mg/dL (8.5-10.3); CREATININE 0.8 mg/dL (0.4-1.0); POTASSIUM 4.3 mmol/L (3.5-5.0); TOTAL PROTEIN 7.7 g/dL (6.7-8.2)
[2020-11-08] MEDS ORDERED: MAG HYDROX/AL HYDROX/SIMETH 30 ML UDC PO STA (12:41)
[2020-11-08] MEDS ORDERED: SUCRALFATE 1 GM/10 ML UDC PO STA (12:41)
[2020-11-08] MEDS ORDERED: LIDOCAINE VISCOUS 2% 15 ML UDC MM STA (12:41)
--- NOTE | 2020-11-08 12:44 | ED Physician Documentation ---
PD HPI ABD PAIN - Stated complaint Stated Complaint: STOMACH PX - Chief complaint Chief Complaint: Abd Pain - History obtained from History obtained from: Patient - History of Present Illness Timing - onset: Yesterday Timing - duration: Days (2) Timing - details: Abrupt onset Pain level max: 9 Pain level now: 9 Quality: Aching, Pain Location: Epigastric Radiation: Chest Improved by: Other (tums did not help) Worsened by: Eating Associated symptoms: No: Fever, Nausea, Vomiting, Hematemesis, Diarrhea, Constipation Similar symptoms before: Diagnosis (GERD) - Additional information Additional information: Patient states that she has had an EGD in the past showing GERD. She states that she had a pH test done last week at [facility]. She does not know the results yet. She has been taking her medications regularly as prescribed. She states that the pain worsened last night. She states that her medications at home are not helping. 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 : None HEENT: None Psych: None Musculoskeletal: None Derm: None - Past Surgical History Past Surgical History: No - Present Medications Home Medications: Ambulatory Orders Medication Instructions Recorded Confirmed Famotidine 40 mg PO DAILY #100 oral.susp 07/02/20 11/08/20 Butalb/Acetaminophen/Caffeine 1 cap PO Q6H PRN #10 capsule 07/05/20 11/08/20 [Fioricet 50-300-40 mg Capsule] Escitalopram [Lexapro] 10 mg PO DAILY 11/08/20 11/08/20 Hydrocodone/Acetaminophen 15 ml PO Q6H PRN #118 ml 11/08/20 [Hydrocodone-Acetamn 7.5-325/15] Omeprazole [PriLOSEC] 20 mg PO DAILY 11/08/20 11/08/20 traZODone [Desyrel] 25 mg PO HS 11/08/20 11/08/20 - Allergies Allergies/Adverse Reactions: Allergies Allergy/AdvReac Type Severity Reaction Status Date / Time No Known Drug Allergies Allergy Verified 11/08/20 11:56 - Social History Does the pt smoke?: No Smoking Status: Never smoker Does the pt drink ETOH?: Yes Does the pt have substance abuse?: No - Immunizations Immunizations are current?: Yes - POLST Patient has POLST: No PD ED PE NORMAL - Vitals Vital signs reviewed: Yes - General General: Alert and oriented X 3, No acute distress, Well developed/nourished - HEENT HEENT: PERRL, Moist mucous membranes - Neck Neck: Supple, no meningeal sign - Cardiac Cardiac: RRR, Strong equal pulses - Respiratory Respiratory: No respiratory distress, Clear bilaterally - Abdomen Abdomen: Soft, Non distended, Other (TTP epigastric, no peritoneal signs) - Derm Derm: Warm and dry - Extremities Extremities: No edema - Neuro Neuro: Alert and oriented X 3 - Psych Psych: Normal mood, Normal affect Results - Vitals Vitals: Vital Signs - 24 hr 11/08/20 11/08/20 11:56 14:08 Temperature 36.7 C 37.2 C Heart Rate 78 66 Respiratory 18 18 Rate Blood Pressure 118/64 97/54 L O2 Saturation 97 97 Oxygen O2 Source Room air - EKG (time done) 1327 Rate: Rate (enter#) (62) Rhythm: NSR [place]: Normal Intervals: Normal OR QRS: Normal Ischemia: ST elevation c/w repol - Labs Labs: Laboratory Tests 11/08/20 11/08/20 11/08/20 12:08 12:13 12:13 WBC 6.2 RBC 4.89 Hgb 14.9 Hct 45.3 MCV 92.6 MCH 30.5 MCHC 32.9 RDW 12.6 Plt Count 195 MPV 11.2 H Neut # (Auto) 3.4 Lymph # (Auto) 2.2 [place] # (Auto) 0.3 Eos # (Auto) 0.1 Baso # (Auto) 0.0 Absolute Nucleated RBC 0.00 Nucleated RBC % 0.0 Sodium 144 Potassium 4.3 Chloride 106 Carbon Dioxide 27 Anion Gap 11.0 BUN 12 Creatinine 0.8 Estimated GFR (MDRD) 88 L Glucose 94 Calcium 9.9 Total Bilirubin 0.7 AST 22 ALT 22 Alkaline Phosphatase 54 Total Protein 7.7 Albumin 4.9 Globulin 2.8 Albumin/Globulin Ratio 1.8 Lipase 27 Urine Color YELLOW Urine Clarity CLEAR Urine pH 5.5 Ur Specific [place] >=1.030 H Urine Protein NEGATIVE Urine Glucose (UA) NEGATIVE Urine Ketones NEGATIVE Urine Occult Blood NEGATIVE Urine Nitrite NEGATIVE Urine Bilirubin NEGATIVE Urine Urobilinogen 0.2 (NORMAL) Ur Leukocyte Esterase NEGATIVE Ur Microscopic Review NOT INDICATED Urine Culture Comments NOT INDICATED Urine HCG, Qual NEGATIVE - Rads (name of study) Chest x-ray Radiology: Prelim report reviewed, EMP read contemporaneously, See rad report (No acute abnormality) PD MEDICAL DECISION MAKING - ED course Complexity details: reviewed results, re-evaluated patient, d/w patient ED course: Unclear etiology the patient's pain. Chest x-ray does not show any acute abnormalities. Laboratory work is normal. EKG does not have any acute abnormalities. Not much change with a GI cocktail. The pain did improve with Vicodin. She states she cannot swallow pills, therefore liquid Lortab is used. Will prescribe a small amount of this for home and have her follow-up with her doctor. She states she recently had a pH test, but does not know the results of this. Unclear if she has been tested for eosinophilic esophagitis. Patient counseled regarding signs and symptoms for which I believe and urgent re- evaluation would be necessary. Patient with good understanding of and agreement to plan and is comfortable going home at this time This document was made in part using voice recognition software. While efforts are made to proofread this document, sound alike and grammatical errors may occur. Departure - Departure Disposition: Home, Self Care Clinical Impression: Chest pain Qualifiers: Chest pain type: unspecified Qualified Code(s): R07.9 - Chest pain, unspecified Abdominal pain Qualifiers: Abdominal location: epigastric Qualified Code(s): R10.13 - Epigastric pain Condition: Good Instructions: ED Abdominal Pain Unkn Cause Follow-Up: JOSHUA GONZÁLES PA-C [Primary Care Provider] - Within 1 week Prescriptions: Hydrocodone/Acetaminophen [Hydrocodone-Acetamn 7.5-325/15] 15 ml PO Q6H PRN #118 ml PRN Reason: Pain Comments: The cause of your symptoms is unclear today. Please follow-up with your doctor for further care. Return if you worsen. You should discuss the possibility of something such as eosinophilic esophagitis with your GI doctor. Do not drink alcohol or drive while on narcotic pain medicine. Note that many narcotic pain relievers also contain tylenol/acetaminophen. Please ensure that your total dose of acetaminophen from all sources does not exceed 3 grams (3000mg) per day. You may constipated on this medication, take a stool softener such as "Colace" twice a day while you are on it. Also recommend a [id number] laxative such as senna or MiraLAX any day that you do not have a bowel movement. If you received narcotic pain medication in the emergency department, do not drive or operate machinery for the next 24 hours. Forms: Activity restrictions Discharge Date/Time: 11/08/20 14:36
[2020-11-08] MEDS ORDERED: HYDROcodone/ACETAM 7.5 MG/325 MG 15 ML UDC PO STA (13:14)
--- NOTE | 2020-11-08 14:06 | XRAY Report ---
PROCEDURE: Chest 2 View X-Ray INDICATIONS: chest pain TECHNIQUE: 2 view(s) of the chest. COMPARISON: 06/30/2020. Correlation is also made with prior chest CT, 07/07/2020. FINDINGS: Surgical changes and devices: None. Lungs and pleura: No pleural effusions or pneumothorax. Lungs are clear. Mediastinum: Mediastinal contours are normal. Heart size is normal. Bones and chest wall: No suspicious bony abnormalities. S-shaped scoliotic curvature is incidentally noted. Soft tissues appear unremarkable. IMPRESSION: No acute cardiopulmonary process is seen. S-shaped scoliotic curvature noted. Reviewed by: Franco Mccarthy MD on 11/08/2020 1:05 PM DONI Approved by: Franco Mccarthy MD on 11/08/2020 1:05 PM DONI Station ID: [id number]
[2020-11-08 14:09] VITALS: BP 97/54
== END 2020-11-08 14:36 | disposition home or self-care (01) ==
LOC: ED 11:46
DX: R07.9 Chest pain, unspecified (principal); R10.13 Epigastric pain; K21.9 Gastro-esophageal reflux disease without esophagitis
CPT/HCPCS: 36415; 71046; 80053; 81003; 81025; 83690; 85025; 93005; 99284; A9270; 81001; 87086

== ENCOUNTER 2020-12-09 08:00 | Outpatient (CLI) | payer MEDICAID | END 2020-12-09 23:59 | LOC: LAB.S 08:00 | PROVIDERS: ATTEND Physician Assistant Medical | DX: R07.0 Pain in throat (principal); B34.9 Viral infection, unspecified; Z20.822 Contact with and (suspected) exposure to COVID-19 | CPT/HCPCS: 87070 ==

== ENCOUNTER 2021-03-18 22:23 | Outpatient (CLI) | payer MEDICAID | END 2021-03-18 22:24 | disposition short-term general hospital (02) | LOC: EMS 22:23 | DX: R07.9 Chest pain, unspecified (principal) | CPT/HCPCS: A0425; A0427; A0999 ==

== ENCOUNTER 2021-03-29 08:00 | Outpatient (CLI) | payer MEDICAID ==
[2021-03-29 21:29] LABS: CHLAMYDIA TRACHOMATIS DNA NEGATIVE (NEGATIVE); NEISSERIA GONORRHOEAE DNA NEGATIVE (NEGATIVE); TRICHOMONAS VAGINALIS DNA NEGATIVE (NEGATIVE)
== END 2021-03-29 23:59 | disposition home or self-care (01) ==
LOC: LAB 08:00
PROVIDERS: ATTEND Obstetrics & Gynecology
DX: Z11.3 Encounter for screening for infections with a predominantly sexual mode of transmission (principal)
CPT/HCPCS: 87491; 87591; 87661

== ENCOUNTER 2021-04-07 15:22 | Outpatient (CLI) | payer MEDICAID | END 2021-04-07 15:23 | disposition short-term general hospital (02) | LOC: EMS 15:22 | DX: U07.1 COVID-19 (principal) | CPT/HCPCS: A0425; A0427; A0999 ==

== ENCOUNTER 2021-05-11 08:57 | Outpatient (CLI) | payer MEDICAID ==
--- NOTE | 2021-05-11 16:31 | Ultrasound Report ---
PROCEDURE: Pelvic w/Transvaginal INDICATIONS: PELVIC PAIN TECHNIQUE: Real-time scanning was performed of the pelvic organs, with image documentation. Additional endovagi nal scanning was necessary due to incomplete visualization of the adnexal and endometrial structures by transabdominal scanning. COMPARISON: None. FINDINGS: No pathologic free abdominal or pelvic fluid. Uterus: Uterus is normal in size at 6.5 x 3.2 x 4.1 cm. The endometrium measures 6.2 mm in combined thickness. Nabothian cysts are noted. Ovaries: Right ovary measures 3.3 x 3.2 x 2.3 cm, volume 12.7 cc. There is a focus of heterogeneous echogenicity measuring 1.2 x 1.5 x 1.9 cm. Left ovary measures 2.9 x 1.5 x 1.0 cm, volume 2.3 cc. IMPRESSION: Complex focus of echogenicity within the right ovary most suggestive of hemorrhagic cyst. Reviewed by: Karla Wilkes MD on 05/11/2021 4:30 PM PST Approved by: Karla Wilkes MD on 05/11/2021 4:30 PM PST Station ID: [id number]
== END 2021-05-11 08:58 | disposition home or self-care (01) ==
LOC: DI 08:57
PROVIDERS: ATTEND Obstetrics & Gynecology
DX: R10.2 Pelvic and perineal pain (principal); R93.89 Abnormal findings on diagnostic imaging of other specified body structures

== ENCOUNTER 2021-07-17 08:00 | Outpatient (CLI) | payer MEDICAID ==
[2021-07-17 20:21] LABS: BACTERIAL VAGINOSIS DNA NEGATIVE (NEGATIVE); CANDIDA GLABRATA DNA NEGATIVE (NEGATIVE); CANDIDA GROUP DNA POSITIVE (NEGATIVE); CANDIDA KRUSEI DNA NEGATIVE (NEGATIVE); TRICHOMONAS VAGINALIS DNA NEGATIVE (NEGATIVE)
[2021-07-17 22:21] LABS: CHLAMYDIA TRACHOMATIS DNA NEGATIVE (NEGATIVE); NEISSERIA GONORRHOEAE DNA NEGATIVE (NEGATIVE); TRICHOMONAS VAGINALIS DNA NEGATIVE (NEGATIVE)
== END 2021-07-17 23:59 | disposition home or self-care (01) ==
LOC: LAB.N 08:00
PROVIDERS: ATTEND Nurse Practitioner
DX: N89.8 Other specified noninflammatory disorders of vagina (principal)
CPT/HCPCS: 87491; 87591; 87661; 87801

== ENCOUNTER 2022-04-29 19:35 | Outpatient (CLI) | payer MEDICAID | END 2022-04-29 23:59 | disposition critical access hospital (66) | LOC: EMS 19:35 | DX: O60.03 Preterm labor without delivery, third trimester (principal); Z3A.00 Weeks of gestation of pregnancy not specified; O24.419 Gestational diabetes mellitus in pregnancy, unspecified control | CPT/HCPCS: A0425; A0429; A0999 ==

== ENCOUNTER 2022-04-29 20:01 | Outpatient (CLI) | payer MEDICAID ==
[2022-04-29] MEDS ORDERED: LACTATED RINGERS 1,000 ML IV ONE (20:32)
[2022-04-29] MEDS ORDERED: hydrOXYzine PAMOATE 25 MG CAPSULE PO ONE (20:33)
--- NOTE | 2022-04-29 21:59 | Labor Flowsheet ---
Labor Flowsheet Datetime Report Generated by CPN: 04/29/2022 21:59 Datetime: 04/29/2022 21:48 VITAL SIGNS NBP Sys/Alicja/Mean (mmHg): 122 : 65 : 78 Pulse: 115 Datetime: 04/29/2022 20:44 SpO2 (%): 96
--- NOTE | 2022-04-29 22:11 | PROVIDER PROGRESS NOTE ---
- HPI Chief Complaint: Pain, non-labor (Patient is a 26-year-old female 1 currently at 36 weeks, 1 day gestation who presents with reports of abdominal pain and possible contractions throughout the evening without vaginal discharge or bleeding. She was prescribed oral nifedipine by her benzene worker with her most recent dose being) Current : Current EDU 05/26/22 Gestation 36 Weeks and 1 Days 1 Para 0 Vital Signs Temperature 98.4 F 04/29/22 20:14 Heart Rate 127 H 04/29/22 20:14 Respiratory Rate 04/29/22 20:14 Blood Pressure 124/69 04/29/22 20:14 Temperature 98.4 F 04/29/22 20:14 Heart Rate 127 H 04/29/22 20:14 Respiratory Rate 04/29/22 20:14 Blood Pressure 124/69 04/29/22 20:14 O2 Saturation If not protocol: Oxygen Flow, liters/minute - Procedures Diagnosis/Indication for NST: labor NST Procedure: NST Procedure Start Date 04/29/22 Start Time 20:02 Stop Time 20:32 Vibroacoustic Stimulation Used No Patient States Movement Yes Findings: Patient is a 26-year-old female 1 currently at 36 weeks, 1 day gestation who presents with reports of abdominal pain and possible contractions throughout the evening without vaginal discharge or bleeding. She was prescribed oral nifedipine by her benzene worker with her most recent dose being taken at 1900 hours today. Patient reports upper abdominal tightness every 1-3 minutes while at home. She reports generalized hip discomfort during her and active movement. Cervical exam reveals a closed cervix, thick, posterior, and high in position. Cervix is moderately firm. heart tracing is category 1. care is noted for a history of gestational DM, class A2 with metformin 1000 mg daily and plan to start insulin this week. She reports EFW of 5 pounds, 14 oz on April 20, 2022. Her Ob providers is planning induction of labor at 37-38 weeks. We reviewed labor instructions. Patient would like to continue on IV hydration. She declined oral vistaril or IV fentanyl. She would like to be dismiss following treatment unless further cervical change. heart tracing is Category 1. Kamas monitor shows minimal uterine contractions.
[2022-04-29 22:21] VITALS: BP 122/65
== END 2022-04-29 22:05 | disposition home or self-care (01) ==
LOC: WFO 20:01 → FBP 20:04 → WFO 22:05
PROVIDERS: ATTEND Obstetrics & Gynecology
DX: O99.891 Other specified diseases and conditions complicating pregnancy (principal); R10.9 Unspecified abdominal pain; O24.415 Gestational diabetes mellitus in pregnancy, controlled by oral hypoglycemic drugs; Z3A.36 36 weeks gestation of pregnancy
CPT/HCPCS: 59025; 96360; 99214; A9270; J7120